=== PATIENT | female | born 1970 | race Caucasian/White ===

== ENCOUNTER → 2018-03-06 | Outpatient (CLI) | payer OTHER ==
--- NOTE | 2018-03-06 12:59 | US ---
EXAMINATION TYPE: US venous doppler duplex LE RT DATE OF EXAM: 03/06/2018 12:49 PM COMPARISON: NONE CLINICAL HISTORY: Pain in right knee M25.561. SIDE PERFORMED: Right TECHNIQUE: The lower extremity deep venous system is examined utilizing real time linear array sonog ish with graded compression, doppler sonography and color-flow sonography. VESSELS IMAGED: External Iliac Vein (EIV) Common Femoral Vein Deep Femoral Vein Greater Saphenous Vein * Femoral Vein Popliteal Vein Small Saphenous Vein * Proximal Calf Veins (* superficial vessels) Grayscale, color doppler, spectral doppler imaging performed of the deep veins of the right lower ext remity. There is normal flow, compressibility, vascular waveforms. Right Leg: Negative for DVT GSV and PTV's to be scanned as well per order, unable to visualized due to small caliber. Elongated probable popliteal cyst measures 2.0 x 0.6 x 0.7 cm. IMPRESSION: 1. No sonographic evidence of deep venous arthrosis of the right lower extremity. However, the great saphenous vein and posterior tibial veins were not visualized due to their diminutive size. 2. Elongated probable popliteal cyst in the popliteal fossa measuring 2.0 cm.
== END ==
LOC: RADUSWWP 11:57
PROVIDERS: ATTEND Orthopaedic Surgery
DX: M25.561 Pain in right knee (principal)

== ENCOUNTER → 2018-07-22 | Outpatient (CLI) | payer OTHER ==
--- NOTE | 2018-07-22 12:48 | MR ---
EXAMINATION TYPE: MR knee RT wo con DATE OF EXAM: 07/22/2018 COMPARISON: None HISTORY: 48-year-old female Right knee pain / MMT / LMT TECHNIQUE: Multiplanar, multisequence imaging of the right knee is performed without IV contrast. FINDINGS: ACL, PCL, MCL, and LCL complex appear intact. Some degenerative signal within the body and junction with the posterior horn of the medial meniscus without discrete meniscal tear. There is focal 9 x 5 mm moderate to severe irregular cartilage loss along the posterior weightbearing aspect of the medial femoral condyle with underlying subchondral cystic change. Minimal superficial cartilage irregularity along the mid central aspect. Otherwise, medial compartment articular cartilag e volume is maintained. Lateral compartment articular cartilage is maintained. Focal moderate irregular cartilage loss along the medial patellar facet with underlying subchondral c ystic change. Trochlear articular cartilage shows mild diffuse thinning. Extensor mechanism is intact. A small knee joint effusion with trace early Jones's cyst formation. Normal popliteal artery anatomy and muscle bulk. No suspicious bone marrow replacement. IMPRESSION: 1. Mild degenerative signal in the posterior horn and body of the medial meniscus without meniscal te ar. 2. Focal 9 x 5 mm area of moderate to severe cartilage loss along the posterior weightbearing aspect of the medial femoral condyle. 3. Moderate focal degenerative changes of the articular cartilage along the medial patellar facet. Mi ld diffuse thinning of articular cartilage along the trochlear facets. 4. Small knee joint effusion and trace early Jones's cyst.
== END ==
LOC: RADMRIMAIN 10:43
PROVIDERS: ATTEND Orthopaedic Surgery
DX: M25.561 Pain in right knee (principal); M17.11 Unilateral primary osteoarthritis, right knee; M25.461 Effusion, right knee

== ENCOUNTER 2018-12-28 10:41 | Emergency (ER) | payer OTHER, BC ==
[2018-12-28 10:47] VITALS: BP 118/77; PULSE 101; RESP 18; TEMP 98.5
[2018-12-28] MEDS ORDERED: KETOROLAC 60 MG/2 ML VIAL IM STA (11:26)
--- NOTE | 2018-12-28 11:33 | ED ---
Back Pain HPI - General Chief Complaint: Back Pain/Injury Stated Complaint: BACK PAIN Time Seen by Provider: 12/28/18 10:55 Source: patient Limitations: no limitations - History of Present Illness Initial Comments: Patient is a 48-year-old female presenting to the emergency Department with complaints of low back pain x 1 day. Patient states she has been moving this past weekend and went to bend over to steel pickler a box when she felt tightness in her right lower back. Patient states she has tried heat on the area as well as Valium at night without relief of symptoms. Patient denies any numbness and tingling to her extremities, saddle paresthesias, trouble with urination. Patient denies fever, chills. Patient denies any previous lumbar surgeries. Patient has no other complaints at this time. Upon arrival to ER, vital signs are stable. - Related Data Previous Rx's Medication Instructions Recorded Cyclobenzaprine [Flexeril] 5 mg PO BID PRN #10 tablet 12/28/18 Ketorolac [Toradol] 10 mg PO Q8HR #15 tab 12/28/18 predniSONE 20 mg PO BID 5 Days #10 tab 12/28/18 Allergies Allergy/AdvReac Type Severity Reaction Status Date / Time methylprednisolone Allergy Rapid Verified 12/28/18 10:47 [From Medrol] Heart Rate Penicillins Allergy Itching Verified 12/28/18 10:47 Review of Systems ROS Statement: Those systems with pertinent positive or pertinent negative responses have been documented in the HPI. ROS Other: All systems not noted in ROS Statement are negative. Past Medical History Additional Past Medical History / Comment(s): overactive bladder History of Any Multi-Drug Resistant Organisms: None Reported Past Surgical History: Orthopedic Surgery Additional Past Surgical History / Comment(s): Neck surgery Past Psychological History: No Psychological Hx Reported Smoking Status: Current every day smoker Past Alcohol Use History: Rare Past Drug Use History: None Reported General Exam - General Exam Comments Initial Comments: GENERAL: Well-appearing, well-nourished and in no acute distress. HEAD: Atraumatic, normocephalic. EYES: Pupils equal round and reactive to light, extraocular movements intact, sclera anicteric, conjunctiva are normal. NECK: Normal range of motion, supple without lymphadenopathy or JVD. LUNGS: Breath sounds clear to auscultation bilaterally and equal. No wheezes rales or rhonchi. HEART: Regular rate and rhythm without murmurs, rubs or gallops. ABDOMEN: Soft, nontender, normoactive bowel sounds. No masses appreciated. EXTREMITIES: No pain with palpation of the lumbar paraspinals. Decreased trunk flexion and extension secondary to pain. Sensation is equal and bilateral. 5 out of 5 strength of the lower extremities. No pitting or edema. No clubbing or cyanosis. NEUROLOGICAL: Cranial nerves II through XII grossly intact. Normal speech,. PSYCH: Normal mood, normal affect. SKIN: Warm, Dry, normal turgor, no rashes or lesions noted. Limitations: no limitations Course Vital Signs 12/28/18 10:43 Temperature 98.5 F Pulse Rate 101 H Respiratory 18 Rate Blood Pressure 118/77 O2 Sat by Pulse 98 Oximetry Medical Decision Making - Medical Decision Making Patient is a 48-year-old female here for a right lumbar strain. Patient has no alarms symptoms. Patient will be given Toradol the ER and prescription for Flexeril and short course of steroids for relief. Patient will continue with Motrin at home. Patient will follow up with primary care if symptoms persist. Patient is in agreement with this plan of care. Return parameters were discussed with the patient she verbalized understanding. Case discussed with Dr. Berrios. Disposition Clinical Impression: Strain of lumbar region Disposition: HOME SELF-CARE Condition: Stable Instructions (If sedation given, give patient instructions): Acute Low Back Pain (ED) Additional Instructions: Please return to the Emergency Department if symptoms worsen or any other concerns. Follow-up with PCP if symptoms persist. Prescriptions: Cyclobenzaprine [Flexeril] 5 mg PO BID PRN #10 tablet PRN Reason: Muscle Spasm predniSONE 20 mg PO BID 5 Days #10 tab Ketorolac [Toradol] 10 mg PO Q8HR #15 tab Is patient prescribed a controlled substance at d/c from ED?: No Referrals: Quentin Alaniz MD [Primary Care Provider] - 1-2 days
== END 2018-12-28 11:44 | disposition home or self-care (01) ==
LOC: EC 10:41
DX: S39.012A Strain of muscle, fascia and tendon of lower back, initial encounter (principal); F17.200 Nicotine dependence, unspecified, uncomplicated; Z98.890 Other specified postprocedural states; Z88.0 Allergy status to penicillin; Z88.8 Allergy status to other drugs, medicaments and biological substances; X50.0XXA Overexertion from strenuous movement or load, initial encounter; X50.1XXA Overexertion from prolonged static or awkward postures, initial encounter; Y93.89 Activity, other specified
CPT/HCPCS: 99283; 96372; J1885

== ENCOUNTER → 2018-12-30 | Outpatient (CLI) | payer OTHER, BC ==
--- NOTE | 2018-12-30 10:28 | XR ---
EXAMINATION TYPE: XR KUB DATE OF EXAM: 12/30/2018 COMPARISON: None INDICATION: N 39 TECHNIQUE: Single view abdomen frontal projection FINDINGS: There is abundant fecal debris throughout the colon. Psoas margins are normal. No organomegaly is present. No suspicious calcifications are evident. The osseous structures are unremarkable. T12 ribs are rudim entary. IMPRESSION: 1. Fecal retention.
--- NOTE | 2018-12-30 11:20 | XR ---
EXAMINATION TYPE: XR lumbar spine 2 or 3V DATE OF EXAM: 12/30/2018 COMPARISON: None HISTORY: Low back pain, lifting injury TECHNIQUE: Three-view lumbar spine FINDINGS: There 5 lumbar-type vertebral bodies. Pedicles are intact. Disc heights are preserved. Vert ebral body heights are preserved. IMPRESSION: 1. Normal three-view lumbar spine
== END | disposition home or self-care (01) ==
LOC: RADXRMAIN 10:01
PROVIDERS: ATTEND Internal Medicine
DX: M54.5 Low back pain (principal); K59.00 Constipation, unspecified; N39.9 Disorder of urinary system, unspecified
CPT/HCPCS: 72100; 74018